=== PATIENT | male | born 1965 | race American Indian/Alaskan Native ===

== ENCOUNTER 2017-07-19 02:41 | Emergency (ER) | payer MEDICARE ==
[2017-07-19 02:51] VITALS: BP 139/83
== END 2017-07-19 11:52 ==
LOC: ED 02:41
DX: H92.02 Otalgia, left ear (principal); Z53.21 Procedure and treatment not carried out due to patient leaving prior to being seen by health care provider

== ENCOUNTER 2021-09-14 21:18 | Emergency (ER) | payer MEDICARE ==
[2021-09-14] MEDS ORDERED: ASPIRIN 325 MG TAB PO ONE (21:29)
--- NOTE | 2021-09-14 21:53 | XRay Report ---
CHEST 2 VIEWS INDICATION / CLINICAL INFORMATION: CHEST PAIN. COMPARISON: None available at the current time. FINDINGS: SUPPORT DEVICES: None. HEART / MEDIASTINUM: Heart is upper normal size. LUNGS / PLEURA: Hazy increased density over both lungs. No pneumothorax. ADDITIONAL FINDINGS: No significant additional findings. IMPRESSION: 1. Hazy bilateral pulmonary opacities which could represent borderline interstitial edema or atypical pneumonia. Signer Name: Mary Carter MD Signed: 09/14/2021 9:49 PM Workstation Name: [id number]
[2021-09-14 23:57] LABS: Basophils # (Auto) 0.1 K/mm3 (0.0-0.1); Basophils % (Auto) 0.9 % (0.0-1.8); Eosinophils # (Auto) 0.6 K/mm3 (0.0-0.4); Hematocrit 38.3 % (35.5-45.6); Hemoglobin 12.5 gm/dl (11.8-15.2); Lymphocytes # (Auto) 3.2 K/mm3 (1.2-5.4); Lymphocytes % (Auto) 36.9 % (13.4-35.0); Mean Corpuscular HGB Conc 33 % (32-34); Mean Corpuscular Volume 98 fl (84-94); Monocytes # (Auto) 0.7 K/mm3 (0.0-0.8); Monocytes % (Auto) 8.7 % (0.0-7.3); Platelet Count 134 K/mm3 (140-440); Red Cell Distribution Width 13.8 % (13.2-15.2)
[2021-09-15 00:12] LABS: Alanine Aminotransferase 19 units/L (7-56); Albumin 4.1 g/dL (3.9-5); BUN/Creatinine Ratio 13; Blood Urea Nitrogen 12 mg/dL (9-20); Calcium 8.9 mg/dL (8.4-10.2); Hemolysis Index 4
[2021-09-15] MEDS ORDERED: IBUPROFEN 800 MG TAB PO ONE (02:24)
--- NOTE | 2021-09-15 03:01 | Emergency Department Report ---
ED Chest Pain HPI - General Chief Complaint: Chest Pain Stated Complaint: CHEST PAIN Time Seen by Provider: 09/15/21 02:24 Source: patient, family Mode of arrival: Ambulatory Limitations: No Limitations - History of Present Illness Initial Comments: Patient 56-year-old -[place] male who presents for chest pain substernal intermittent x3 days. Patient denies dizziness lightheadedness no nausea no vomiting. No back pain. No shortness of breath no wheezing however there is cough that is productive clear. Patient states pain is exacerbated by coughing movement. Pain is relieved by nothing tried. Patient denies smoking patient denies other history. MD Complaint: chest pain Severity scale (0 -10): 6 - Related Data Previous Rx's Medication Instructions Recorded Last Taken Type Albuterol Mdi (or & Nicu Only) 2 puff IH QID PRN #8.5 gram 09/15/21 Unknown Rx [ProAir HFA Inhaler] Azithromycin 500 mg PO DAILY 5 Days #5 tab 09/15/21 Unknown Rx Ibuprofen [Motrin 800 MG tab] 800 mg PO Q8HR PRN #30 tablet 09/15/21 Unknown Rx dexAMETHasone [Decadron] 4 mg PO BID 5 Days #10 tablet 09/15/21 Unknown Rx Allergies Allergy/AdvReac Type Severity Reaction Status Date / Time No Known Allergies Allergy Unverified 04/26/13 09:56 Heart Score - HEART Score History: Slightly suspicious EKG: Normal Age: 45-65 Risk factors: No known risk factors Troponin: < normal limit HEART Score: 1 - EKG Read Time Time EKG Completed: 21:32 EKG Read Time: 21:33 (Ed attending ) ED Review of Systems ROS: Stated complaint: CHEST PAIN Other details as noted in HPI Constitutional: denies: chills, fever Eyes: denies: eye pain, eye discharge, vision change ENT: denies: ear pain, throat pain Respiratory: denies: cough, shortness of breath, wheezing Cardiovascular: chest pain. denies: palpitations, dyspnea on exertion, orthopnea, edema, syncope, paroxysmal nocturnal dyspnea Endocrine: no symptoms reported Gastrointestinal: denies: abdominal pain, nausea, vomiting, diarrhea Genitourinary: denies: urgency, dysuria, frequency, hematuria, discharge Musculoskeletal: denies: back pain, joint swelling, arthralgia Skin: denies: rash, lesions Neurological: denies: headache, weakness, numbness, paresthesias, vertigo Psychiatric: denies: anxiety, depression Hematological/Lymphatic: denies: easy bleeding, easy bruising ED Past Medical Hx - Surgical History Additional Surgical History: right knee surgery - Social History Smoking Status: Never Smoker Substance Use Type: None - Medications Home Medications: Home Medications Medication Instructions Recorded Confirmed Last Taken Type Albuterol Mdi (or & Nicu Only) 2 puff IH QID PRN #8.5 gram 09/15/21 Unknown Rx [ProAir HFA Inhaler] Azithromycin 500 mg PO DAILY 5 Days #5 tab 09/15/21 Unknown Rx Ibuprofen [Motrin 800 MG tab] 800 mg PO Q8HR PRN #30 tablet 09/15/21 Unknown Rx dexAMETHasone [Decadron] 4 mg PO BID 5 Days #10 tablet 09/15/21 Unknown Rx ED Physical Exam - General Limitations: No Limitations General appearance: alert, in no apparent distress - Head Head exam: Present: atraumatic, normocephalic - Eye Eye exam: Present: normal appearance, EOMI Pupils: Present: normal accommodation - ENT ENT exam: Present: mucous membranes moist - Neck Neck exam: Present: normal inspection, full ROM. Absent: tenderness - Respiratory Respiratory exam: Present: normal lung sounds bilaterally. Absent: respiratory distress, wheezes, rales, rhonchi, stridor, chest wall tenderness - Cardiovascular Cardiovascular Exam: Present: regular rate, normal rhythm, normal heart sounds. Absent: systolic murmur, diastolic murmur, rubs, gallop - GI/Abdominal GI/Abdominal exam: Present: soft, normal bowel sounds. Absent: distended, tenderness, guarding, rebound, rigid, bruit, hernia - Rectal Rectal exam: Present: deferred - Extremities Exam Extremities exam: Present: normal inspection, full ROM, normal capillary refill. Absent: pedal edema - Back Exam Back exam: Present: normal inspection, full ROM. Absent: CVA tenderness (R), CVA tenderness (L) - Neurological Exam Neurological exam: Present: alert, oriented X3, CN II-XII intact, normal gait - Psychiatric Psychiatric exam: Present: normal affect, normal mood - Skin Skin exam: Present: warm, dry, intact, normal color. Absent: rash ED Course Vital Signs 09/14/21 21:26 Temperature 98.4 F Pulse Rate 86 Respiratory 18 Rate Blood Pressure 148/91 O2 Sat by Pulse 93 Oximetry BIRD score - Bird Score Age > 65: (0) No Aspirin use within the Past 7 Days: (0) No 3 or more CAD Risk Factors: (0) No 2 or more Angina events in past 24 hrs: (0) No Known CAD with more than 50% Stenosis: (0) No Elevated Cardiac Markers: (0) No ST Deviation Greater than 0.5mm: (0) No BIRD Score: 0 ED Medical Decision Making - Lab Data Result diagrams: 09/14/21 23:25 09/14/21 23:25 Labs 09/14/21 09/14/21 09/15/21 23:25 23:25 01:13 WBC 8.6 RBC 3.90 Hgb 12.5 Hct 38.3 MCV 98 H MCH 32 MCHC 33 RDW 13.8 Plt Count 134 L Lymph % (Auto) 36.9 H [place] % (Auto) 8.7 H Eos % (Auto) 7.0 H Baso % (Auto) 0.9 Lymph # (Auto) 3.2 [place] # (Auto) 0.7 Eos # (Auto) 0.6 H Baso # (Auto) 0.1 Seg Neutrophils % 46.5 Seg Neutrophils # 4.0 Sodium 142 Potassium 4.5 Chloride 108.0 H Carbon Dioxide 23 Anion Gap 16 BUN 12 Creatinine 0.9 Estimated GFR > 60 BUN/Creatinine Ratio 13 Glucose 97 Calcium 8.9 Total Bilirubin 0.70 AST 19 ALT 19 Alkaline Phosphatase 69 Troponin T < 0.010 < 0.010 Total Protein 6.7 Albumin 4.1 Albumin/Globulin Ratio 1.6 - EKG Data EKG shows normal: sinus rhythm, axis, intervals, ST-T waves Rate: normal - EKG Data When compared to previous EKG there are: previous EKG unavailable Interpretation: LVH (NSR LVH NSTEMI interp by ed attending ) - Radiology Data Radiology results: report reviewed, image reviewed FINDINGS: SUPPORT DEVICES: None. HEART / MEDIASTINUM: Heart is upper normal size. LUNGS / PLEURA: Hazy increased density over both lungs. No pneumothorax. ADDITIONAL FINDINGS: No significant additional findings. IMPRESSION: 1. Hazy bilateral pulmonary opacities which could represent borderline interstitial edema or atypical pneumonia. Signer Name: Mary Carter MD Signed: 09/14/2021 9:49 PM Workstation Name: [id number] Transcribed By: DT Dictated By: George Carter MD Electronically Authenticated By: George Carter MD Signed Date/Time: 09/14/212148 DD/ 46 TD/TT: - Medical Decision Making Chest x-ray Mild Bilateral Opacities Likely Atypical EKG normal sinus rhythm with some LVH this is a chronic finding for this patient. Troponin is less than 0.01x2 heart score is 0, BIRD score 0, pain is improved with NSAIDs given in ED plan DC to home, with prescriptions, patient DC with prescription for Zithromax follow-up primary care doctor in 2 to 3 days. Patient verbalized agreement and understanding with same patient DC'd home in stable condition at this time vital signs are stable O2 sat is 100% on room air. Critical care attestation.: If time is entered above; I have spent that time in minutes in the direct care of this critically ill patient, excluding procedure time. ED Disposition Clinical Impression: CAP (community acquired pneumonia) Qualifiers: Laterality: unspecified laterality Qualified Code(s): J18.9 - Pneumonia, unspecified organism Chest pain Qualifiers: Chest pain type: unspecified Qualified Code(s): R07.9 - Chest pain, unspecified Disposition: 01 HOME / SELF CARE / HOMELESS Is pt being admited?: No Does the pt Need Aspirin: No Condition: Stable Instructions: Bacterial Pneumonia (ED), Community-Acquired Pneumonia, Adult, [id number], Nonspecific Chest Pain, Adult, [id number] Additional Instructions: Take medications as prescribed, follow-up with your doctor in 2 to 3 days. Return to emergency department should symptoms worsen. Get COVID screening. Prescriptions: Azithromycin 500 mg PO DAILY 5 Days #5 tab dexAMETHasone [Decadron] 4 mg PO BID 5 Days #10 tablet Ibuprofen [Motrin 800 MG tab] 800 mg PO Q8HR PRN #30 tablet PRN Reason: fever pain Albuterol Mdi (or & Nicu Only) [ProAir HFA Inhaler] 2 puff IH QID PRN #8.5 gram PRN Reason: Shortness Of Breath Referrals: MARTHA MAYS MD [Primary Care Provider] - 3-5 Days Forms: Work/School Release Form(ED) Time of Disposition: 03:09
[2021-09-15] MEDS ORDERED: AZITHROMYCIN 250 MG TAB PO ONE (03:04)
[2021-09-15] MEDS ORDERED: dexAMETHasone 20 MG/5 ML VIAL IM ONE (03:11)
[2021-09-15 03:52] VITALS: BP 134/78
--- NOTE | 2021-09-15 18:02 | Electrocardiograph Report ---
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
== END 2021-09-15 03:47 | disposition home or self-care (01) ==
LOC: ED 21:18
DX: J18.9 Pneumonia, unspecified organism (principal); R07.9 Chest pain, unspecified
CPT/HCPCS: 36415; 71046; 80053; 84484; 85025; 93005; 96372; 99284; J1100

== ENCOUNTER 2021-09-30 18:41 | Emergency (ER) | payer MEDICARE ==
[2021-09-30 19:34] VITALS: BP 153/95
--- NOTE | 2021-10-05 18:24 | Electrocardiograph Report ---
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
== END 2021-10-01 01:15 | disposition left against medical advice (07) ==
LOC: ED 18:41
DX: R06.02 Shortness of breath (principal); R05.9 Cough, unspecified; Z53.21 Procedure and treatment not carried out due to patient leaving prior to being seen by health care provider
CPT/HCPCS: 93005; 99281